=== PATIENT | female | born 1975 | race Caucasian/White ===

== ENCOUNTER 2017-11-18 17:08 | Emergency (ER) | payer OTHER ==
[~2017-11-18] VITALS: Ht 149.9 cm; Wt 58.5 kg
[2017-11-18 17:20] VITALS: Ht 149.9 cm; Wt 58.5 kg
[2017-11-18 19:57] VITALS: BP 166/80
== END 2017-11-18 20:19 | disposition home or self-care (01) ==
LOC: ED 17:08
DX: R11.10 Vomiting, unspecified (principal); E11.9 Type 2 diabetes mellitus without complications; Z88.2 Allergy status to sulfonamides; Z88.1 Allergy status to other antibiotic agents; Z88.8 Allergy status to other drugs, medicaments and biological substances

== ENCOUNTER 2018-02-19 01:40 | Inpatient (IN) | payer OTHER ==
[~2018-02-19] VITALS: Ht 149.9 cm; Wt 67.7 kg
[2018-02-19 01:46] VITALS: Ht 149.9 cm; Wt 67.7 kg
[2018-02-19 02:34] LABS: ALBUMIN 3.7 g/dL (3.4-5.0); BILIRUBIN TOTAL 0.5 mg/dL (0.20-1.00); CALCIUM 8.2 mg/dL (8.5-10.1); CARBON DIOXIDE 33.4 mmol/L (21-32); POTASSIUM SERUM 3.8 mmol/L (3.5-5.1)
[2018-02-19 03:05] LABS: BASOPHIL % 0.2 % (0-2); PLATELET COUNT 247 x10^3mcL (130-400); RED CELL DISTRIBUTION WIDTH 14.2 % (11.5-14.5)
[2018-02-19] MEDS ORDERED: LORAZEPAM1 MG (04:26)
[2018-02-19] MEDS ORDERED: PRO60 (04:26)
[2018-02-19] MEDS ORDERED: FLA500 (04:26)
[2018-02-19] MEDS ORDERED: HYDRALAZINE HCL25 MG (04:27)
[2018-02-19] MEDS ORDERED: AURYXIA1 GM (04:27)
[2018-02-19] MEDS ORDERED: LOPERAMIDE HCL2 M1 (04:27)
[2018-02-19] MEDS ORDERED: TOPROL XL25 MG (04:27)
[2018-02-19 04:39] LABS: AMYLASE 40 U/L (25-115); CHOLESTEROL 119 mg/dL (<200); CHOLESTEROL/HDL RATIO 3.7; HDL CHOLESTEROL 32 mg/dL (40-60); LIPASE 132 IU/L (73-393); MAGNESIUM 2.5 mg/dL (1.8-2.4); PHOSPHOROUS 6.1 mg/dL (2.5-4.9); TRIGLYCERIDES 428 mg/dL (<150)
[2018-02-19 04:47] LABS: FREE T4 1.29 ng/dL (0.76-1.46); FREE THYROXINE INDEX 2.7 ug/dL (1.4-4.5)
[2018-02-19 04:48] LABS: T3 TOTAL 0.99 ng/mL
[2018-02-19] MEDS ORDERED: REG10 PO (05:05)
[2018-02-19] MEDS ORDERED: PREDNISONE20 MG PO (05:06)
[2018-02-19] MEDS ORDERED: LANTUS SOLOS100 U/M1 SQ (05:07)
[2018-02-19 05:28] VITALS: BP 141/75
[2018-02-19 10:01] VITALS: BP 162/88
[2018-02-19 21:01] VITALS: BP 167/73
[2018-02-19 22:49] VITALS: BP 161/77
[2018-02-19 23:28] VITALS: BP 143/66
[2018-02-20 05:00] VITALS: BP 158/61
[2018-02-20 07:27] LABS: BASOPHIL % 0.5 % (0-2); PLATELET COUNT 218 x10^3mcL (130-400)
[2018-02-20 07:58] LABS: CALCIUM 8.1 mg/dL (8.5-10.1); CARBON DIOXIDE 29.5 mmol/L (21-32); MAGNESIUM 2.9 mg/dL (1.8-2.4); PHOSPHOROUS 7.4 mg/dL (2.5-4.9); POTASSIUM SERUM 3.5 mmol/L (3.5-5.1)
[2018-02-20 08:03] LABS: RED CELL DISTRIBUTION WIDTH 14.6 % (11.5-14.5)
[2018-02-20 08:04] LABS: CREATININE SERUM 8.6 mg/dL (0.6-1.0)
[2018-02-20 10:34] VITALS: BP 140/55
[2018-02-20 12:19] VITALS: BP 188/74
[2018-02-20] MEDS ORDERED: LEXAPRO10 MG PO (13:52)
[2018-02-20 14:17] VITALS: BP 188/74
== END 2018-02-20 15:48 | disposition home or self-care (01) | DRG 756 ==
LOC: ED 01:40 → DU 04:06
PROVIDERS: Emergency Medicine; Family Medicine
DX: F41.9 Anxiety disorder, unspecified (principal); N17.0 Acute kidney failure with tubular necrosis; Z88.0 Allergy status to penicillin; I12.0 Hypertensive chronic kidney disease with stage 5 chronic kidney disease or end stage renal disease; E11.22 Type 2 diabetes mellitus with diabetic chronic kidney disease; N18.6 End stage renal disease; E11.319 Type 2 diabetes mellitus with unspecified diabetic retinopathy without macular edema; Z88.2 Allergy status to sulfonamides; Z88.8 Allergy status to other drugs, medicaments and biological substances; Z79.4 Long term (current) use of insulin; E11.65 Type 2 diabetes mellitus with hyperglycemia; D86.9 Sarcoidosis, unspecified; E83.41 Hypermagnesemia; Z91.19 Patient's noncompliance with other medical treatment and regimen; F41.0 Panic disorder [episodic paroxysmal anxiety]; E87.8 Other disorders of electrolyte and fluid balance, not elsewhere classified; E78.1 Pure hyperglyceridemia; E02 Subclinical iodine-deficiency hypothyroidism
CPT/HCPCS: 82962; 83880; 84439; 87046; 87046-59; 94150; J1815; J7030; J7512; J7620; Q0092; Q0163

== ENCOUNTER 2018-04-06 14:26 | Emergency (ER) | payer OTHER ==
[~2018-04-06] VITALS: Ht 124.5 cm; Wt 68.5 kg
[~2018-04-06 14:26] MED LIST: AURYXIA1 GM; FLA500; HYDRALAZINE HCL25 MG; LANTUS SOLOS100 U/M1 SQ; LEXAPRO10 MG PO; LOPERAMIDE HCL2 M1; LORAZEPAM1 MG; PREDNISONE20 MG PO; PRO60; REG10 PO; TOPROL XL25 MG
[2018-04-06 14:46] VITALS: Ht 124.5 cm; Wt 68.5 kg
[2018-04-06 15:30] LABS: BASOPHIL % 0.3 % (0-2); PLATELET COUNT 218 x10^3mcL (130-400); RED CELL DISTRIBUTION WIDTH 13.4 % (11.5-14.5)
[2018-04-06 15:41] LABS: CALCIUM 9.2 mg/dL (8.5-10.1); CARBON DIOXIDE 34.1 mmol/L (21-32); POTASSIUM SERUM 3.9 mmol/L (3.5-5.1)
[2018-04-06 15:44] LABS: CREATININE SERUM 5.7 mg/dL (0.6-1.0)
[2018-04-06 17:11] LABS: CHOLESTEROL/HDL RATIO 4.5; MAGNESIUM 2.3 mg/dL (1.8-2.4); PHOSPHOROUS 4.7 mg/dL (2.5-4.9)
[2018-04-06 17:32] VITALS: BP 188/97
[2018-04-06 17:35] LABS: FREE T4 1.03 ng/dL (0.76-1.46); FREE THYROXINE INDEX 2.7 ug/dL (1.4-4.5); T4(THYROXINE) 7.8 ug/dL (4.7-13.3)
[2018-04-06 18:20] LABS: T3 TOTAL 0.94 ng/mL
== END 2018-04-06 17:32 | disposition left against medical advice (07) ==
LOC: ED 14:26 → DU 15:20 → ED 15:20
PROVIDERS: Emergency Medicine Emergency Medical Services; Family Medicine
DX: N12 Tubulo-interstitial nephritis, not specified as acute or chronic (principal); E11.9 Type 2 diabetes mellitus without complications; Z90.710 Acquired absence of both cervix and uterus; Z88.0 Allergy status to penicillin; Z88.2 Allergy status to sulfonamides; Z88.8 Allergy status to other drugs, medicaments and biological substances
CPT/HCPCS: 84439; J0278

== ENCOUNTER 2018-04-20 15:57 | Emergency (ER) | payer OTHER ==
[~2018-04-20] VITALS: Ht 149.9 cm; Wt 68.7 kg
[2018-04-20 17:09] VITALS: BP 130/64
== END 2018-04-20 17:10 | disposition home or self-care (01) ==
LOC: ED 15:57
DX: L72.3 Sebaceous cyst (principal); F41.9 Anxiety disorder, unspecified; E11.9 Type 2 diabetes mellitus without complications; Z88.0 Allergy status to penicillin; Z88.1 Allergy status to other antibiotic agents; Z88.2 Allergy status to sulfonamides; Z88.8 Allergy status to other drugs, medicaments and biological substances; Z90.710 Acquired absence of both cervix and uterus

== ENCOUNTER 2018-07-05 21:29 | Emergency (ER) | payer OTHER ==
[~2018-07-05] VITALS: Ht 149.9 cm; Wt 66.7 kg
[2018-07-05 22:08] VITALS: Ht 149.9 cm; Wt 66.7 kg
[2018-07-05 22:47] LABS: BASOPHIL % 0.5 % (0-2); PLATELET COUNT 231 x10^3mcL (130-400)
[2018-07-05 23:00] LABS: ALBUMIN 3.5 g/dL (3.4-5.0); BILIRUBIN TOTAL 0.4 mg/dL (0.20-1.00); CALCIUM 10.5 mg/dL (8.5-10.1); POTASSIUM SERUM 3.9 mmol/L (3.5-5.1); TOTAL PROTEIN, SERUM 8.2 g/dL (6.4-8.2)
[2018-07-05 23:15] LABS: CREATININE SERUM 7.5 mg/dL (0.6-1.0)
[2018-07-06 00:14] VITALS: BP 162/83
== END 2018-07-06 00:14 | disposition home or self-care (01) ==
LOC: ED 21:29
PROVIDERS: Emergency Medicine
DX: K56.41 Fecal impaction (principal); Z88.0 Allergy status to penicillin; Z88.2 Allergy status to sulfonamides; Z88.1 Allergy status to other antibiotic agents; Z88.8 Allergy status to other drugs, medicaments and biological substances; E11.9 Type 2 diabetes mellitus without complications; Z90.710 Acquired absence of both cervix and uterus
CPT/HCPCS: J1885

== ENCOUNTER 2018-07-31 01:38 | Emergency (ER) | payer OTHER ==
[~2018-07-31] VITALS: Ht 142.2 cm; Wt 65.8 kg
[2018-07-31 01:59] VITALS: Ht 142.2 cm; Wt 65.8 kg
[2018-07-31 02:45] LABS: BASOPHIL % 0.8 % (0-2); PLATELET COUNT 245 x10^3mcL (130-400); RED CELL DISTRIBUTION WIDTH 13.4 % (11.5-14.5)
[2018-07-31 02:56] LABS: PHOSPHOROUS 7.3 mg/dL (2.5-4.9)
[2018-07-31 02:57] LABS: ALBUMIN 3.7 g/dL (3.4-5.0); BILIRUBIN TOTAL 0.4 mg/dL (0.20-1.00); CALCIUM 10.6 mg/dL (8.5-10.1); MAGNESIUM 2.7 mg/dL (1.8-2.4); POTASSIUM SERUM 4.1 mmol/L (3.5-5.1); TOTAL PROTEIN, SERUM 8.6 g/dL (6.4-8.2)
[2018-07-31 02:58] LABS: CREATININE SERUM 7.3 mg/dL (0.6-1.0)
[2018-07-31 05:48] VITALS: BP 153/73
== END 2018-07-31 05:48 | disposition home or self-care (01) ==
LOC: ED 01:38
PROVIDERS: Emergency Medicine
DX: E11.649 Type 2 diabetes mellitus with hypoglycemia without coma (principal); Z99.2 Dependence on renal dialysis; Z90.49 Acquired absence of other specified parts of digestive tract; Z90.710 Acquired absence of both cervix and uterus; F41.9 Anxiety disorder, unspecified; Z88.0 Allergy status to penicillin; Z88.2 Allergy status to sulfonamides
CPT/HCPCS: 82962; J2270; Q0162; Q0163

== ENCOUNTER 2018-09-11 17:48 | Emergency (ER) | payer OTHER ==
[~2018-09-11] VITALS: Ht 149.9 cm; Wt 68.0 kg
[2018-09-11 17:55] VITALS: Ht 149.9 cm; Wt 68.0 kg
[2018-09-11 18:44] LABS: BASOPHIL % 0.3 % (0-2); PLATELET COUNT 244 x10^3mcL (130-400); RED CELL DISTRIBUTION WIDTH 15.6 % (11.5-14.5)
[2018-09-11 19:02] LABS: BILIRUBIN TOTAL 0.41 mg/dL (0.20-1.00); CALCIUM 10.7 mg/dL (8.5-10.1); CARBON DIOXIDE 27.5 mmol/L (21-32); POTASSIUM SERUM 5.2 mmol/L (3.5-5.1); TOTAL PROTEIN, SERUM 7.2 g/dL (6.4-8.2)
[2018-09-11 19:04] LABS: CREATININE SERUM 10.2 mg/dL (0.6-1.0)
[2018-09-11 19:49] VITALS: BP 186/76
== END 2018-09-11 19:49 | disposition home or self-care (01) ==
LOC: ED 17:48
DX: J20.9 Acute bronchitis, unspecified (principal); L73.1 Pseudofolliculitis barbae; I12.9 Hypertensive chronic kidney disease with stage 1 through stage 4 chronic kidney disease, or unspecified chronic kidney disease; E11.22 Type 2 diabetes mellitus with diabetic chronic kidney disease; F41.9 Anxiety disorder, unspecified; N18.9 Chronic kidney disease, unspecified; Z99.2 Dependence on renal dialysis; Z90.49 Acquired absence of other specified parts of digestive tract; Z90.710 Acquired absence of both cervix and uterus; Z88.0 Allergy status to penicillin; Z88.2 Allergy status to sulfonamides; Z88.1 Allergy status to other antibiotic agents; Z88.8 Allergy status to other drugs, medicaments and biological substances
CPT/HCPCS: 36415; 83880; J7620; Q0092

== ENCOUNTER 2018-09-23 08:41 | Inpatient (IN) | payer OTHER ==
[~2018-09-23] VITALS: Ht 149.9 cm; Wt 66.2 kg
[2018-09-23 09:48] LABS: BASOPHIL % 0.8 % (0-2); PLATELET COUNT 189 x10^3mcL (130-400)
[2018-09-23 09:49] LABS: RED CELL DISTRIBUTION WIDTH 15.6 % (11.5-14.5)
[2018-09-23 09:58] LABS: BILIRUBIN TOTAL 1.27 mg/dL (0.20-1.00); CALCIUM 9.4 mg/dL (8.5-10.1); CARBON DIOXIDE 33.4 mmol/L (21-32); TOTAL PROTEIN, SERUM 7.5 g/dL (6.4-8.2)
[2018-09-23 10:30] LABS: ALBUMIN 3.2 g/dL (3.4-5.0)
[2018-09-23 10:31] LABS: CREATININE SERUM 7.6 mg/dL (0.6-1.0)
[2018-09-23] MEDS ORDERED: RENVELA800 M1 (12:01)
[2018-09-23 14:15] LABS: MAGNESIUM 2.5 mg/dL (1.8-2.4); PHOSPHOROUS 5.7 mg/dL (2.5-4.9)
[2018-09-23 14:18] LABS: T3 TOTAL 0.66 ng/mL
[2018-09-23 14:25] LABS: FREE T4 1.01 ng/dL (0.76-1.46); FREE THYROXINE INDEX 2.4 ug/dL (1.4-4.5); T4(THYROXINE) 6.5 ug/dL (4.7-13.3)
[2018-09-23 14:46] VITALS: BP 196/84
[2018-09-23 17:16] VITALS: BP 162/66
[2018-09-23 19:00] VITALS: BP 167/56
[2018-09-23 22:48] VITALS: Ht 149.9 cm; Wt 66.2 kg
[2018-09-24 05:58] VITALS: BP 142/64
[2018-09-24 06:34] LABS: BASOPHIL % 0.7 % (0-2); PLATELET COUNT 171 x10^3mcL (130-400)
[2018-09-24 06:40] LABS: BILIRUBIN DIRECT 0.17 mg/dL (0.0-0.2); BILIRUBIN TOTAL 0.78 mg/dL (0.20-1.00)
[2018-09-24 06:41] LABS: ALBUMIN 2.9 g/dL (3.4-5.0)
[2018-09-24 07:10] LABS: CALCIUM 9.3 mg/dL (8.5-10.1); CARBON DIOXIDE 28.3 mmol/L (21-32); POTASSIUM SERUM 3.5 mmol/L (3.5-5.1)
[2018-09-24 07:16] LABS: CREATININE SERUM 5.5 mg/dL (0.6-1.0)
[2018-09-24 07:29] LABS: RED CELL DISTRIBUTION WIDTH 15.5 % (11.5-14.5)
[2018-09-24 08:45] VITALS: BP 167/61
[2018-09-24 11:24] VITALS: BP 172/68
[2018-09-24 16:42] VITALS: BP 132/75
[2018-09-24 20:42] VITALS: BP 191/72
[2018-09-25] VITALS (7 sets, daily range): BP systolic 123–195; BP diastolic 43–85
[2018-09-25 06:21] LABS: BASOPHIL % 0.6 % (0-2); PLATELET COUNT 185 x10^3mcL (130-400)
[2018-09-25 06:58] LABS: CALCIUM 9.5 mg/dL (8.5-10.1); CARBON DIOXIDE 24.4 mmol/L (21-32)
[2018-09-25 07:09] LABS: CREATININE SERUM 7.8 mg/dL (0.6-1.0)
[2018-09-25 08:19] LABS: RED CELL DISTRIBUTION WIDTH 15.1 % (11.5-14.5)
[2018-09-26] VITALS (10 sets, daily range): BP systolic 127–210; BP diastolic 46–83
[2018-09-26 06:06] LABS: BASOPHIL % 0.4 % (0-2); PLATELET COUNT 205 x10^3mcL (130-400)
[2018-09-26 06:45] LABS: RED CELL DISTRIBUTION WIDTH 15.1 % (11.5-14.5)
[2018-09-26 07:13] LABS: CALCIUM 9.7 mg/dL (8.5-10.1); CARBON DIOXIDE 18.9 mmol/L (21-32); MAGNESIUM 2.8 mg/dL (1.8-2.4); POTASSIUM SERUM 4.4 mmol/L (3.5-5.1)
[2018-09-26 07:23] LABS: CREATININE SERUM 9.6 mg/dL (0.6-1.0)
[2018-09-26 08:24] LABS: IRON 115 ug/dL (50-170)
[2018-09-26 08:26] LABS: TOTAL IRON BINDING CAPACITY 206 ug/dL (250-450)
[2018-09-26] MEDS ORDERED: PRO10I SQ (08:46)
[2018-09-26] MEDS ORDERED: ADA30 PO (08:47)
[2018-09-26] MEDS ORDERED: PREDNISONE20 MG PO ×2 (08:48→08:49)
[2018-09-26] MEDS ORDERED: AZITHROMYCIN250 M1 PO (08:50)
[2018-09-27 01:07] VITALS: BP 170/60
[2018-09-27 06:10] VITALS: BP 133/53
[2018-09-27 10:01] VITALS: BP 136/58
== END 2018-09-27 13:22 | disposition home or self-care (01) | DRG 133 ==
LOC: ED 08:41 → DU 11:52
PROVIDERS: Emergency Medicine; General Practice; Internal Medicine
PROC: 5A1D70Z Performance of Urinary Filtration, Intermittent, Less than 6 Hours Per Day (ICD-10-PCS; principal; 2018-09-23)
PROC: 5A1D70Z Performance of Urinary Filtration, Intermittent, Less than 6 Hours Per Day (ICD-10-PCS; 2018-09-26)
DX: J96.01 Acute respiratory failure with hypoxia (principal); I13.2 Hypertensive heart and chronic kidney disease with heart failure and with stage 5 chronic kidney disease, or end stage renal disease; J18.9 Pneumonia, unspecified organism; E11.21 Type 2 diabetes mellitus with diabetic nephropathy; N18.6 End stage renal disease; I50.33 Acute on chronic diastolic (congestive) heart failure; D86.0 Sarcoidosis of lung; E11.319 Type 2 diabetes mellitus with unspecified diabetic retinopathy without macular edema; E11.22 Type 2 diabetes mellitus with diabetic chronic kidney disease; E80.6 Other disorders of bilirubin metabolism; F41.9 Anxiety disorder, unspecified; G47.33 Obstructive sleep apnea (adult) (pediatric); Z99.2 Dependence on renal dialysis; Z68.29 Body mass index [BMI] 29.0-29.9, adult; Z91.14 Patient's other noncompliance with medication regimen; Z88.0 Allergy status to penicillin; Z88.2 Allergy status to sulfonamides; Z88.8 Allergy status to other drugs, medicaments and biological substances; Z90.710 Acquired absence of both cervix and uterus; Z90.49 Acquired absence of other specified parts of digestive tract; E87.70 Fluid overload, unspecified; Z82.49 Family history of ischemic heart disease and other diseases of the circulatory system; E66.9 Obesity, unspecified; Z71.3 Dietary counseling and surveillance; I16.0 Hypertensive urgency; D63.1 Anemia in chronic kidney disease; H54.8 Legal blindness, as defined in USA; Z91.19 Patient's noncompliance with other medical treatment and regimen
CPT/HCPCS: 82962; 83880; 84439; 90658; J0360; J0456; J0696; J0885-EC; J1644; J1815; J2920; J3490; J7030; Q0092

== ENCOUNTER 2018-09-30 00:26 | Inpatient (IN) | payer OTHER ==
[~2018-09-30] VITALS: Ht 149.9 cm; Wt 66.9 kg
[2018-09-30] VITALS (7 sets, daily range): BP systolic 130–198; BP diastolic 48–71; Ht 149.9 cm; Wt 66.9 kg
[~2018-09-30 00:26] MED LIST changes: +ADA30 PO; +AZITHROMYCIN250 M1 PO; +PRO10I SQ; +RENVELA800 M1
[2018-09-30 01:18] LABS: BASOPHIL % 0.5 % (0-2); PLATELET COUNT 232 x10^3mcL (130-400); RED CELL DISTRIBUTION WIDTH 14.2 % (11.5-14.5)
[2018-09-30 01:25] LABS: BILIRUBIN TOTAL 0.61 mg/dL (0.20-1.00); CALCIUM 8.5 mg/dL (8.5-10.1); CARBON DIOXIDE 32.3 mmol/L (21-32); POTASSIUM SERUM 3.6 mmol/L (3.5-5.1)
[2018-09-30 01:27] LABS: ALBUMIN 3.1 g/dL (3.4-5.0); CREATININE SERUM 5.9 mg/dL (0.6-1.0)
[2018-10-01 05:06] VITALS: BP 170/59
[2018-10-01 06:34] LABS: BASOPHIL % 0.4 % (0-2); PLATELET COUNT 218 x10^3mcL (130-400)
[2018-10-01 06:45] LABS: RED CELL DISTRIBUTION WIDTH 15.8 % (11.5-14.5)
[2018-10-01 06:51] LABS: CARBON DIOXIDE 31.7 mmol/L (21-32); PHOSPHOROUS 4.6 mg/dL (2.5-4.9); POTASSIUM SERUM 3.6 mmol/L (3.5-5.1)
[2018-10-01 06:55] LABS: CREATININE SERUM 4.1 mg/dL (0.6-1.0)
[2018-10-01 08:34] VITALS: BP 174/59
[2018-10-01 09:01] VITALS: BP 174/59
[2018-10-01 13:35] VITALS: BP 191/75
[2018-10-01 13:36] VITALS: BP 179/73
[2018-10-01 14:36] VITALS: BP 179/73
== END 2018-10-01 15:25 | disposition home or self-care (01) | DRG 720 ==
LOC: ED 00:26 → DU 02:47 → MU 03:56 → DU 04:15
PROVIDERS: Emergency Medicine; Family Medicine
PROC: 5A1D70Z Performance of Urinary Filtration, Intermittent, Less than 6 Hours Per Day (ICD-10-PCS; principal; 2018-09-30)
DX: A41.9 Sepsis, unspecified organism (principal); N17.0 Acute kidney failure with tubular necrosis; I13.2 Hypertensive heart and chronic kidney disease with heart failure and with stage 5 chronic kidney disease, or end stage renal disease; E11.22 Type 2 diabetes mellitus with diabetic chronic kidney disease; D68.69 Other thrombophilia; E44.0 Moderate protein-calorie malnutrition; J18.9 Pneumonia, unspecified organism; E11.65 Type 2 diabetes mellitus with hyperglycemia; N18.6 End stage renal disease; G90.8 Other disorders of autonomic nervous system; N39.0 Urinary tract infection, site not specified; M94.0 Chondrocostal junction syndrome [Tietze]; D86.0 Sarcoidosis of lung; I50.9 Heart failure, unspecified; D63.1 Anemia in chronic kidney disease; G47.33 Obstructive sleep apnea (adult) (pediatric); G25.81 Restless legs syndrome; F41.1 Generalized anxiety disorder; Z99.2 Dependence on renal dialysis; Z68.28 Body mass index [BMI] 28.0-28.9, adult; Z88.0 Allergy status to penicillin; Z88.2 Allergy status to sulfonamides; Z88.8 Allergy status to other drugs, medicaments and biological substances; Z88.1 Allergy status to other antibiotic agents; Z90.710 Acquired absence of both cervix and uterus; Z90.49 Acquired absence of other specified parts of digestive tract; Z98.42 Cataract extraction status, left eye; Z79.899 Other long term (current) drug therapy
CPT/HCPCS: 82962; 83880; 85378; J7050; Q0092; Q0163